=== PATIENT | male | born 1960 | race American Indian/Alaskan Native ===

== ENCOUNTER 2017-04-17 20:47 | Emergency (ER) | payer MEDICARE, MEDICAID ==
[2017-04-17 20:57] VITALS: BMI 39.8
[2017-04-17 21:03] VITALS: RESP 16; TEMP 97.9; O2SAT 100
--- NOTE | 2017-04-17 21:20 | ED PDOC ---
Arrival/HPI - General Chief Complaint: ENT Problem Time Seen by Provider: 04/17/17 21:07 Historian: Patient - History of Present Illness Narrative History of Present Illness (Text): 04/17/17 21:13 A 56 year old male, whose past medical history includes diabetes, hypertension and CHF on Lasix, presents to the emergency department complaining of right sided neck pain for 1 week. Patient describes the pain as a sharp sensation and notes intermittent pain down back and right arm. Patient states the pain is exacerbated with movement. Patient denies any fever, chills, nausea, vomiting, diarrhea, abdominal pain, chest pain, shortness of breath or any other complaints. Patient currently moved from [place] and has not found a PMD in [place]. Time/Duration: 1 week Symptom Course: Unchanged Quality: Other Context: Other Past Medical History - Provider Review Nursing Documentation Reviewed: Yes - Infectious Disease Hx of Infectious Diseases: None - Cardiac Hx Congestive Heart Failure: Yes Hx Hypertension: Yes - Endocrine/Metabolic Hx Diabetes Mellitus Type 2: Yes - Psychiatric Hx Substance Use: No - Surgical History Other/Comment: eye brow - Anesthesia Hx Anesthesia: No Family/Social History - Physician Review Nursing Documentation Reviewed: Yes Family/Social History: No Known Family HX Smoking Status: Unknown If Ever Smoked Hx Alcohol Use: Yes Hx Substance Use: No Allergies/Home Meds Allergies/Adverse Reactions: Allergies dye Allergy (Uncoded 04/17/17 20:56) RASH Home Medications: Home Meds Medication Instructions Recorded Confirmed Aspirin [Aspirin Chewable] 81 mg PO DAILY 04/17/17 04/17/17 Atorvastatin Calcium [Lipitor] 80 mg PO DAILY 04/17/17 04/17/17 Carvedilol [Coreg] 25 mg PO DAILY 04/17/17 04/17/17 Digoxin [Lanoxin] 0.25 mg PO DAILY 04/17/17 04/17/17 Furosemide [Lasix] 20 mg PO DAILY 04/17/17 04/17/17 Metformin ER [Glucophage XR] 1,000 mg PO DAILY 04/17/17 04/17/17 Potassium Chloride [K-Tab ER] 8 meq PO DAILY 04/17/17 04/17/17 Ramipril [Altace] 5 mg PO DAILY 04/17/17 04/17/17 amLODIPine [Norvasc] 10 mg PO DAILY 05/22/17 05/22/17 Review of Systems - Physician Review All systems were reviewed & negative as marked: Yes - Review of Systems Constitutional: absent: Fevers, Night Sweats Respiratory: absent: SOB Cardiovascular: absent: Chest Pain Gastrointestinal: absent: Abdominal Pain, Diarrhea, Nausea, Vomiting Musculoskeletal: Neck Pain (Right sided neck pain intermittently radiating to back/rigth arm) Physical Exam Vital Signs Reviewed: Yes Vital Signs Temp Pulse Resp BP Pulse Ox 04/17/17 22:09 71 154/85 H 04/17/17 21:01 97.9 F 84 16 195/99 H 100 Temperature: Afebrile Blood Pressure: Hypertensive Pulse: Regular Respiratory Rate: Normal Appearance: Positive for: Well-Appearing, Non-Toxic, Comfortable Pain Distress: None Mental Status: Positive for: Alert and Oriented X 3 - Systems Exam Head: Present: Atraumatic, Normocephalic Pupils: Present: PERRL Extroacular Muscles: Present: EOMI Conjunctiva: Present: Normal Mouth: Present: Moist Mucous Membranes Neck: Present: Normal Range of Motion, Paraspinal Tenderness, Other (Right neck lower tenderness to palpation, muscle spasm and hypertonicity appreciated). No : Meningeal Signs, MIDLINE TENDERNESS, JVD, Lymphadenopathy, Bruit Respiratory/Chest: Present: Clear to Auscultation, Good Air Exchange. No: Respiratory Distress, Accessory Muscle Use Cardiovascular: Present: Regular Rate and Rhythm, Normal S1, S2. No: Tachycardic Abdomen: No: Tenderness Back: Present: Other (Right upper back tenderness to palpation, muscle spasm appreciated) Upper Extremity: Present: Normal Inspection, Normal ROM, NORMAL PULSES, Neurovascularly Intact. No: Cyanosis, Edema, Tenderness, Swelling, Erythema, Temperature Abnormalties, Deformity Lower Extremity: Present: Normal Inspection Neurological: Present: GCS=15, CN II-XII Intact, Speech Normal, Motor Func Grossly Intact, Normal Sensory Function, Normal Cerebellar Funct, Gait Normal, Normal 2Pt Descrimination Skin: Present: Warm, Dry, Normal Color. No: Rashes Psychiatric: Present: Alert, Oriented x 3, Normal Insight, Normal Concentration Medical Decision Making ED Course and Treatment: 04/17/17 21:13 Impression: A 56 year old male with right sided neck pain. Differential Diagnosis included but are not limited to: Neck pain secondary to Musculoskeletal Plan: -- Flexeril and Motrin -- Reassess and disposition Progress Notes: 04/17/17 21:20 I have discussed the plan with the patient, who expresses understanding. Patient in agreement with plan to be discharged home. Patient is stable for discharge. Patient was instructed to follow up with physician or return if symptoms worsen or new concerning symptoms arise. - Medication Orders Current Medication Orders: Discontinued Medications Cyclobenzaprine HCl (Flexeril) 10 mg PO STAT STA Stop: 04/17/17 21:15 Last Admin: 04/17/17 21:51 Dose: 10 mg Ibuprofen (Motrin Tab) 800 mg PO STAT STA Stop: 04/17/17 21:15 Last Admin: 04/17/17 21:51 Dose: 800 mg - Scribe Statement The provider has reviewed the documentation as recorded by the Reynaldo Castellon Provider Scribe Attestation: All medical record entries made by the Scribe were at my direction and personally dictated by me. I have reviewed the chart and agree that the record accurately reflects my personal performance of the history, physical exam, medical decision making, and the department course for this patient. I have also personally directed, reviewed, and agree with the discharge instructions and disposition. Disposition/Present on Arrival - Present on Arrival Any Indicators Present on Arrival: No History of DVT/PE: No History of Uncontrolled Diabetes: No Urinary Catheter: No History of Decub. Ulcer: No History Surgical Site Infection Following: None - Disposition Have Diagnosis and Disposition been Completed?: Yes Diagnosis: Neck muscle spasm Disposition: HOME/ ROUTINE Disposition Time: 21:20 Patient Plan: Discharge Condition: IMPROVED Discharge Instructions (ExitCare): Muscle Strain (ED) Additional Instructions: Mr Andrea, thank you for letting us take care of you today. Your provider was Dr. Loyd. You were treated for Neck Muscle Spasm. The emergency medical care you received today was directed at your acute symptoms. If you were prescribed any medication, please fill it and take as directed. It may take several days for your symptoms to resolve. Return to the Emergency Department if your symptoms worsen, do not improve, or if you have any other problems. Please contact your doctor or call one of the physicians/clinics you have been referred to that are listed on the Patient Visit Information form that is included in your discharge packet. Bring any paperwork you were given at discharge with you along with any medications you are taking to your follow up visit. Our treatment cannot replace ongoing medical care by a primary care provider (PCP) outside of the emergency department. Thank you for allowing the [facility] team to be part of your care today. If you had an X-Ray or CT scan: A Radiologist will review the ED reading if any change in treatment is needed we will contact you. If you had a blood, urine, or wound culture: It will take several days for the results, if any change in treatment is needed we will contact you. If you had an STI test: It will take 48 hours for the results. Please call after 1 week if you have not heard back. Prescriptions: Cyclobenzaprine [Cyclobenzaprine HCl] 10 mg PO Q8 PRN #20 tab PRN Reason: Muscle Spasm Naproxen 500 mg PO BID PRN #30 tab PRN Reason: Pain, Moderate (4-7) Referrals: [facility], [Non-Staff] - Follow up with primary Forms: [employer] (Greenlandic), WORK NOTE
[2017-04-17 22:09] VITALS: BP 154/85; PULSE 71
== END 2017-04-17 22:13 | disposition home or self-care (01) ==
LOC: ED 20:47
DX: M62.838 Other muscle spasm (principal); I10 Essential (primary) hypertension

== ENCOUNTER 2017-05-12 18:58 | Emergency (ER) | payer MEDICARE, MEDICAID ==
[2017-05-12 18:58] VITALS: BMI 39.8
[2017-05-12 19:19] VITALS: RESP 18; TEMP 98.6
[2017-05-12] MEDS ORDERED: Lidocaine 5% Patch TD STA (19:21)
[2017-05-12] MEDS ORDERED: Oxycodone/Acetaminophen 5/325 mg Tab PO STA (19:21)
--- NOTE | 2017-05-12 19:29 | ED PDOC ---
Arrival/HPI - General Chief Complaint: Back Pain Time Seen by Provider: 05/12/17 19:10 Historian: Patient - History of Present Illness Narrative History of Present Illness (Text): 05/12/17 19:22 56 y/o male, pmh including htn/hyperlipidemia/dm/chf on lasix, nkda, c/o rt. sided neck pain on and off x 2 weeks with no fall or trauma. Aching pain, tightness in sensation, aggravated by movement of the neck and movement of the rt. shoulder, no night sweat, no chest pain or shortness of breath, no dizziness , no palpitation, no rash, no numbness or tingling, no dizziness, no other medical or psychological complaints. Past Medical History - Provider Review Nursing Documentation Reviewed: Yes - Infectious Disease Hx of Infectious Diseases: None - Cardiac Hx Congestive Heart Failure: Yes Hx Hypertension: Yes - Endocrine/Metabolic Hx Diabetes Mellitus Type 2: Yes - Psychiatric Hx Substance Use: No - Surgical History Other/Comment: eye brow - Anesthesia Hx Anesthesia: No Family/Social History - Physician Review Nursing Documentation Reviewed: Yes Family/Social History: Unknown Family HX Smoking Status: Unknown If Ever Smoked Hx Alcohol Use: Yes Hx Substance Use: No Allergies/Home Meds Allergies/Adverse Reactions: Allergies dye Allergy (Uncoded 04/17/17 20:56) RASH Home Medications: Home Meds Medication Instructions Recorded Confirmed Aspirin [Aspirin Chewable] 81 mg PO DAILY 04/17/17 05/12/17 Atorvastatin Calcium [Lipitor] 80 mg PO DAILY 04/17/17 05/12/17 Carvedilol [Coreg] 25 mg PO DAILY 04/17/17 05/12/17 Digoxin [Lanoxin] 0.25 mg PO DAILY 04/17/17 05/12/17 Furosemide [Lasix] 20 mg PO DAILY 04/17/17 05/12/17 Metformin ER [Glucophage XR] 1,000 mg PO DAILY 04/17/17 05/12/17 Potassium Chloride [K-Tab ER] 8 meq PO DAILY 04/17/17 05/12/17 Ramipril [Altace] 5 mg PO DAILY 04/17/17 05/12/17 amLODIPine [Norvasc] 10 mg PO DAILY 04/17/17 05/12/17 Insulin Glargine, Recombina 25 units SQ HS 05/12/17 05/12/17 [Lantus] Review of Systems - Review of Systems Constitutional: absent: Fatigue, Fevers Eyes: absent: Vision Changes ENT: absent: Hearing Changes Respiratory: absent: SOB, Cough Cardiovascular: absent: Chest Pain Gastrointestinal: absent: Abdominal Pain Musculoskeletal: Neck Pain, Myalgias. absent: Arthralgias, Back Pain, Joint Swelling Skin: absent: Rash, Pruritis, Skin Lesions Neurological: absent: Headache, Dizziness, Focal Weakness Psychiatric: absent: Anxiety, Depression, Suicidal Ideation Physical Exam Vital Signs Reviewed: Yes Vital Signs Temp Pulse Resp BP Pulse Ox 05/12/17 18:58 98.6 F 87 18 181/109 H 96 Temperature: Afebrile Blood Pressure: Hypertensive Pulse: Regular Respiratory Rate: Normal Appearance: Positive for: Well-Appearing, Non-Toxic Pain Distress: Severe Mental Status: Positive for: Alert and Oriented X 3 - Systems Exam Head: Present: Atraumatic, Normocephalic Pupils: Present: PERRL Extroacular Muscles: Present: EOMI Conjunctiva: Present: Normal Mouth: Present: Moist Mucous Membranes Neck: Present: Normal Range of Motion, Paraspinal Tenderness, Trachea Midline, Other (Cervical: +ttp on the rt. trapezius muscle region with the spasm noted, pain is 100% reproducible by rt. lateral movement of the neck, FROM without limitation, sensation intact, motor 5/5). No: Meningeal Signs, MIDLINE TENDERNESS, Lymphadenopathy Respiratory/Chest: Present: Clear to Auscultation, Good Air Exchange. No: Respiratory Distress, Accessory Muscle Use Cardiovascular: Present: Regular Rate and Rhythm, Normal S1, S2. No: Murmurs Abdomen: Present: Normal Bowel Sounds. No: Tenderness, Distention, Peritoneal Signs Back: Present: Normal Inspection Upper Extremity: Present: Normal Inspection. No: Cyanosis, Edema Lower Extremity: Present: Normal Inspection. No: Edema Neurological: Present: GCS=15, Speech Normal Skin: Present: Warm, Dry, Normal Color. No: Rashes Psychiatric: Present: Alert, Oriented x 3, Normal Insight, Normal Concentration Medical Decision Making ED Course and Treatment: 05/12/17 19:24 -toradol/percocet/valium/lidoderm patch. -I reviewed the [facility] report, there is no matching name/date of for the patient, will prescribe controlled substances. 05/12/17 20:26 -Pt. feels better, forgot to take his BP medication and DM medication, he will go home to take it as per patient. -Pt. has no chest pain or shortness of breath, no numbness or tingling, no palpitation, no other medical or psychological complaints. -Lung are clear to auscultate bilaterally with trachea midline, no deviation. No heart murmur, no pedal edema. -Discharge home with mobic, robaxin, percocet, lidoderm patch, heat compression , follow up with your ow pmd and pain management within 2 days, return to the ER for any new or worsening signs or symptoms. - Medication Orders Current Medication Orders: Discontinued Medications Diazepam (Valium) 5 mg PO ONCE ONE PRN Reason: Protocol Stop: 05/12/17 19:22 Last Admin: 05/12/17 19:44 Dose: 5 mg Ketorolac Tromethamine (Toradol) 60 mg IM STAT STA Stop: 05/12/17 19:22 Last Admin: 05/12/17 19:44 Dose: 60 mg Lidocaine (Lidoderm) 1 ea TD STAT STA Stop: 05/12/17 19:22 Last Admin: 05/12/17 19:43 Dose: 1 ea Oxycodone/Acetaminophen (Percocet 5/325 Mg Tab) 1 tab PO STAT STA Stop: 05/12/17 19:22 Last Admin: 05/12/17 19:43 Dose: 1 tab - PA / CAGE LOADER / Resident Statement / has reviewed & agrees with the documentation as recorded. Disposition/Present on Arrival - Present on Arrival Any Indicators Present on Arrival: No History of DVT/PE: No History of Uncontrolled Diabetes: No Urinary Catheter: No History of Decub. Ulcer: No History Surgical Site Infection Following: None - Disposition Have Diagnosis and Disposition been Completed?: Yes Diagnosis: Trapezius muscle spasm Disposition: HOME/ ROUTINE Disposition Time: 19:30 Patient Plan: Discharge Patient Problems: Current Active Problems Problem Status Onset Trapezius muscle spasm Acute Condition: IMPROVED Additional Instructions: Discharge home with mobic, robaxin, percocet, lidoderm patch, heat compression, follow up with your ow pmd and pain management within 2 days, return to the ER for any new or worsening signs or symptoms. Prescriptions: Lidocaine 5% [Lidoderm] 1 patch TP DAILY PRN #14 patch PRN Reason: Other Meloxicam [Mobic] 15 mg PO DAILY PRN #14 tablet PRN Reason: Other Methocarbamol [Robaxin-750] 2 tab PO QID PRN #80 tablet PRN Reason: Other oxyCODONE/Acetaminophen [Percocet 5/325 mg Tab] 1 tab PO QID PRN #12 tab PRN Reason: Other Referrals: [facility] [place] - Follow up with primary Mauro Wade MD [Staff Provider] - Follow up with primary Forms: WORK NOTE
[2017-05-12 20:36] VITALS: BP 168/67; PULSE 83; O2SAT 98
== END 2017-05-12 20:42 | disposition home or self-care (01) ==
LOC: ED 18:58
DX: M62.838 Other muscle spasm (principal); I10 Essential (primary) hypertension
CPT/HCPCS: 96372; 99282; J1885

== ENCOUNTER 2017-07-17 11:10 | Emergency (ER) | payer MEDICARE, MEDICAID ==
[2017-07-17 11:13] VITALS: BMI 39.1
--- NOTE | 2017-07-17 11:17 | ED PDOC ---
Arrival/HPI - General Historian: Patient - General Chief Complaint: Dental Pain Time Seen by Provider: 07/17/17 11:16 - History of Present Illness Narrative History of Present Illness (Text): 07/17/17 11:17 57 y/o male, pmh including htn/hyperlipidemia/dm, nkda, c/o rt. lower molar pain x 3 days with no fall or trauma. Pt. stated that he has rt. lower molar pain, aching pain, aggravated by chewing and eating, radiating to the rt. ear. Pt. stated that one of his family members which he live together with has rabies which currently receiving the medication, stated that he has itching on the rt. hand digits as well started today, request medication to be treatment. Pt. has no dizziness, no chest pain or shortness of breath, no palpitation, no night sweat, no other medical or psychological complaints. (Yfn Lyn) Past Medical History - Provider Review Nursing Documentation Reviewed: Yes - Infectious Disease Hx of Infectious Diseases: None - Cardiac Hx Congestive Heart Failure: Yes Hx Hypertension: Yes - Endocrine/Metabolic Hx Diabetes Mellitus Type 2: Yes - Psychiatric Hx Substance Use: No - Surgical History Other/Comment: eye brow - Anesthesia Hx Anesthesia: No Family/Social History - Physician Review Nursing Documentation Reviewed: Yes Family/Social History: Unknown Family HX Smoking Status: Never Smoked Hx Alcohol Use: Yes Frequency of alcohol use: Socially Hx Substance Use: No Allergies/Home Meds Allergies/Adverse Reactions: Allergies dye Allergy (Uncoded 04/17/17 20:56) RASH Home Medications: Home Meds Medication Instructions Recorded Confirmed Aspirin [Aspirin Chewable] 81 mg PO DAILY 04/17/17 07/17/17 Atorvastatin Calcium [Lipitor] 80 mg PO DAILY 04/17/17 07/17/17 Carvedilol [Coreg] 25 mg PO DAILY 04/17/17 07/17/17 Digoxin [Lanoxin] 0.25 mg PO DAILY 04/17/17 07/17/17 Furosemide [Lasix] 20 mg PO DAILY 04/17/17 07/17/17 Metformin ER [Glucophage XR] 1,000 mg PO DAILY 04/17/17 07/17/17 Potassium Chloride [K-Tab ER] 8 meq PO DAILY 04/17/17 07/17/17 Ramipril [Altace] 5 mg PO DAILY 04/17/17 07/17/17 amLODIPine [Norvasc] 10 mg PO DAILY 04/17/17 07/17/17 Insulin Glargine, Recombina 25 units SQ HS 05/12/17 07/17/17 [Lantus] Review of Systems - Review of Systems Constitutional: absent: Fatigue, Fevers Eyes: absent: Vision Changes ENT: Other (dental pain). absent: Hearing Changes Respiratory: absent: SOB, Cough Cardiovascular: absent: Chest Pain Gastrointestinal: absent: Abdominal Pain, Diarrhea, Nausea, Vomiting Skin: Rash, Pruritis, Skin Lesions. absent: Laceration, Abscess, Ulcer, Cellulitis Neurological: absent: Headache, Dizziness, Focal Weakness Physical Exam Vital Signs Reviewed: Yes Temperature: Afebrile Blood Pressure: Hypertensive Pulse: Regular Respiratory Rate: Normal Appearance: Positive for: Well-Appearing, Non-Toxic, Comfortable Pain Distress: Severe Mental Status: Positive for: Alert and Oriented X 3 - Systems Exam Head: Present: Atraumatic, Normocephalic, Other (no temporal artery tenderness) Pupils: Present: PERRL Extroacular Muscles: Present: EOMI Conjunctiva: Present: Normal Ears: Present: NORMAL TM, Normal Canal. No: Erythema Mouth: Present: Moist Mucous Membranes, Normal Lips, Normal Tounge, Other ( visible rt. lower molar cracked with brown discoloration, no gingivitis or gingival abscess. ). No: Drooling Neck: Present: Normal Range of Motion Respiratory/Chest: Present: Clear to Auscultation, Good Air Exchange. No: Respiratory Distress, Accessory Muscle Use Cardiovascular: Present: Regular Rate and Rhythm, Normal S1, S2. No: Murmurs Abdomen: Present: Normal Bowel Sounds. No: Tenderness, Distention, Peritoneal Signs Back: Present: Normal Inspection Upper Extremity: Present: Normal Inspection. No: Cyanosis, Edema Lower Extremity: Present: Normal Inspection. No: Edema Neurological: Present: GCS=15, Speech Normal, Motor Func Grossly Intact, Gait Normal, Memory Normal Skin: Present: Warm, Dry, Normal Color. No: Rashes (there is no visible rash. ) Psychiatric: Present: Alert, Oriented x 3, Normal Insight, Normal Concentration Medical Decision Making ED Course and Treatment: 07/17/17 11:36 -Toradol/percocet/clindamycin -I will give permethrin prescription for the patient as he is itching with living the same household as the patient infested with scabies. -Discharge home with amoxicillin, naproxen, viscous lidocaine, permethrin cream , follow up with your own pmd and dentist/social service director within 2 days, return to the ER for any new or worsening signs or symptoms. (Yfn Lyn) 07/17/17 11:44 I was available for consultation during PA evaluation. The chart was reviewed by me, and I agree with disposition. The documented history was done by the physician property and casualty insurance agent. The documented physical exam was done by the physician property and casualty insurance agent. The documented procedures were done by the physician property and casualty insurance agent. (Scott Bloom) - Medication Orders Current Medication Orders: Discontinued Medications Clindamycin HCl (Cleocin) 300 mg PO STAT STA PRN Reason: Protocol Stop: 07/17/17 11:32 Ketorolac Tromethamine (Toradol) 60 mg IM STAT STA Stop: 07/17/17 11:32 Lidocaine HCl (Lidocaine 2% Viscous) 15 ml MM STAT STA Stop: 07/17/17 11:32 Oxycodone/Acetaminophen (Percocet 5/325 Mg Tab) 1 tab PO STAT STA Stop: 07/17/17 11:32 - PA / STOCK LETTERER / Resident Statement MD/DO has reviewed & agrees with the documentation as recorded. Disposition/Present on Arrival - Present on Arrival Any Indicators Present on Arrival: No History of DVT/PE: No History of Uncontrolled Diabetes: No Urinary Catheter: No History of Decub. Ulcer: No History Surgical Site Infection Following: None - Disposition Have Diagnosis and Disposition been Completed?: Yes Disposition Time: 11:37 Patient Plan: Discharge - Disposition Diagnosis: Scabies exposure, Dental caries Condition: GOOD Additional Instructions: -Discharge home with amoxicillin, naproxen, viscous lidocaine, permethrin cream , follow up with your own pmd and dentist/social service director within 2 days, return to the ER for any new or worsening signs or symptoms. Prescriptions: Amoxicillin 500 mg PO BID PRN #20 tab PRN Reason: Other Lidocaine 2% Viscous 15 ml MM BID PRN #1 bottle PRN Reason: Other Naproxen 500 mg PO BID PRN #20 tab PRN Reason: Other Permethrin 5% [Permethrin 5% Cream] 1 applic TOP ONCE #60 g Referrals: [facility] [Outside] - Follow up with primary Forms: [employer] ([place]), WORK NOTE
[2017-07-17 11:18] VITALS: RESP 18; TEMP 98.4; O2SAT 98
[2017-07-17] MEDS ORDERED: Oxycodone/Acetaminophen 5/325 mg Tab PO STA (11:31)
[2017-07-17 11:50] VITALS: BP 168/94; PULSE 75
== END 2017-07-17 12:30 | disposition home or self-care (01) ==
LOC: ED 11:10
DX: K02.9 Dental caries, unspecified (principal); Z20.7 Contact with and (suspected) exposure to pediculosis, acariasis and other infestations
CPT/HCPCS: 96372; 99282; J1885

== ENCOUNTER 2017-12-23 17:29 | Emergency (ER) | payer MEDICARE, MEDICAID ==
[2017-12-23 17:32] VITALS: BMI 40.4
--- NOTE | 2017-12-23 19:22 | ED PDOC ---
Arrival/HPI - General Chief Complaint: Lower Extremity Problem/Injury Time Seen by Provider: 12/23/17 19:22 Historian: Patient - History of Present Illness Narrative History of Present Illness (Text): 12/23/17 19:22 This 57 yo male with pmh dm, htn, presents to this ED complaining of left knee pain x 2 weeks, and left abdominal pruritic rash x 7 days. Patient denies trauma, fever, recent travel, sob, cp, dizziness, recent surgery, nausea, vomiting, or cms. Time/Duration: Other (see hpi) Context: Home Past Medical History - Provider Review Nursing Documentation Reviewed: Yes - Infectious Disease Hx of Infectious Diseases: None - Cardiac Hx Congestive Heart Failure: Yes Hx Hypertension: Yes - Endocrine/Metabolic Hx Diabetes Mellitus Type 2: Yes - Psychiatric Hx Substance Use: No - Surgical History Other/Comment: eye brow - Anesthesia Hx Anesthesia: No Family/Social History - Physician Review Nursing Documentation Reviewed: Yes Family/Social History: Other (noncontributory) Smoking Status: Never Smoked Hx Alcohol Use: Yes Hx Substance Use: No Allergies/Home Meds Allergies/Adverse Reactions: Allergies dye Allergy (Uncoded 04/17/17 20:56) RASH Home Medications: Home Meds Medication Instructions Recorded Confirmed Aspirin [Aspirin Chewable] 81 mg PO DAILY 04/17/17 12/23/17 Atorvastatin Calcium [Lipitor] 80 mg PO DAILY 04/17/17 12/23/17 Carvedilol [Coreg] 25 mg PO DAILY 04/17/17 12/23/17 Digoxin [Lanoxin] 0.25 mg PO DAILY 04/17/17 12/23/17 Furosemide [Lasix] 20 mg PO DAILY 04/17/17 12/23/17 Metformin ER [Glucophage XR] 1,000 mg PO DAILY 04/17/17 12/23/17 Potassium Chloride [K-Tab ER] 8 meq PO DAILY 04/17/17 12/23/17 Ramipril [Altace] 5 mg PO DAILY 04/17/17 12/23/17 amLODIPine [Norvasc] 10 mg PO DAILY 04/17/17 12/23/17 Insulin Glargine, Recombina 25 units SQ HS 05/12/17 12/23/17 [Lantus] Review of Systems - Review of Systems Constitutional: Normal. absent: Fatigue, Weight Change, Fevers Eyes: Normal ENT: Normal Respiratory: Normal. absent: SOB, Cough Cardiovascular: Normal. absent: Chest Pain, Palpitations Gastrointestinal: Normal. absent: Abdominal Pain, Nausea, Vomiting Genitourinary Male: Normal. absent: Dysuria, Frequency, Hematuria Musculoskeletal: Arthralgias (left knee pain) Skin: Rash, Pruritis Neurological: Normal. absent: Headache, Dizziness, Focal Weakness, Gait Changes , Speech Changes, Facial Droop, Disequilibrium Endocrine: Normal Hemo/Lymphatic: Normal Psychiatric: Normal Physical Exam Vital Signs Temp Pulse Resp BP Pulse Ox 12/23/17 17:30 98.5 F 76 18 185/111 H 98 Temperature: Afebrile Blood Pressure: Hypertensive Pulse: Regular Respiratory Rate: Normal Appearance: Positive for: Well-Appearing, Non-Toxic, Comfortable Pain Distress: None Mental Status: Positive for: Alert and Oriented X 3 - Systems Exam Head: Present: Atraumatic, Normocephalic Pupils: Present: PERRL Extroacular Muscles: Present: EOMI Conjunctiva: Present: Normal Mouth: Present: Moist Mucous Membranes Neck: Present: Normal Range of Motion Respiratory/Chest: Present: Clear to Auscultation, Good Air Exchange. No: Respiratory Distress, Accessory Muscle Use Cardiovascular: Present: Regular Rate and Rhythm, Normal S1, S2. No: Murmurs Abdomen: Present: Normal Bowel Sounds, Other (see skin). No: Tenderness, Distention, Peritoneal Signs Back: Present: Normal Inspection Upper Extremity: Present: Normal Inspection, Normal ROM. No: Cyanosis, Edema Lower Extremity: Present: Normal Inspection, NORMAL PULSES, Normal ROM, Tenderness (mild tenderness on left knee joint. No septic knee joint. no erythema, warmth, or ecchymosis), Neurovascularly Intact, Capillary Refill < 2 s. No: Edema, CALF TENDERNESS, Swelling, Erythema, Deformity, Temperature Abnormalties Neurological: Present: GCS=15, CN II-XII Intact, Speech Normal Skin: Present: Warm, Dry, Rashes ((+) right lower abdominal panus skin fold rash , which resembles cadidiasis infection), Normal Color Psychiatric: Present: Alert, Oriented x 3, Normal Insight, Normal Concentration Medical Decision Making ED Course and Treatment: 12/23/17 20:27 Re-evaluation. Patient feels better. Discussed results and plan with patient who expresses understanding. All questions answered and there is agreement with the plan to discharge home with instructions. Patient stable for discharge. Return if symptoms persist or worsen Re-evaluation Time: 20:27 Reassessment Condition: Re-examined, Improved - RAD Interpretation Narrative RAD Interpretations (Text): 12/23/17 20:27 Knee x-rays: DJD. No Fx. Radiology Orders: 12/23/17 19:22 KNEE WITH PATELLA LEFT 3 VIEW [RAD] Stat - Medication Orders Current Medication Orders: Discontinued Medications Ketorolac Tromethamine (Toradol) 30 mg IM STAT STA Stop: 12/23/17 19:25 Last Admin: 12/23/17 19:47 Dose: 30 mg MAR Pain Assessment Document 12/23/17 19:47 AB (Rec: 12/23/17 19:48 AB [place] [id number]) Pain Reassessment Is this a pain reassessment? Yes Sleep Is patient sleeping during reassessment? No Presence of Pain Presence of Pain Yes Pain Scale Used Pain Scale Used Numeric Location Left, Right or Bilateral Left Upper or Lower Lower Pain Location Body Site Leg Description Description Constant Intensity of Pain at present 5 Pain Behavior Grasping Site Aggravating Factors ADL's Alleviating Factors/Management Medication Techniques IM Administration Charges Document 12/23/17 19:47 AB (Rec: 12/23/17 19:48 AB [place] [id number]) Injection Site MAR Injection Site Left Deltoid Charges for Administration # of IM Administrations 1 Disposition/Present on Arrival - Present on Arrival Any Indicators Present on Arrival: No History of DVT/PE: No History of Uncontrolled Diabetes: No Urinary Catheter: No History of Decub. Ulcer: No History Surgical Site Infection Following: None - Disposition Have Diagnosis and Disposition been Completed?: Yes Diagnosis: Knee pain, Candidiasis, cutaneous Disposition: HOME/ ROUTINE Disposition Time: 20:30 Patient Plan: Discharge Patient Problems: Current Active Problems Problem Status Onset Candidiasis, cutaneous Acute Knee pain Acute Condition: GOOD Discharge Instructions (ExitCare): Skin Yeast Infection (ED) Additional Instructions: Call private doctor for follow up visit in 1-2 days. Take medication as instructed. return to emergency if symptoms worsen. Do not drive or operate machinery if you are taking Tylenol #3. Apply cream on the rash once daily for at least 2 weeks Prescriptions: Acetaminophen with Codeine [Tylenol with Codeine #3 Tablet] 1 each PO Q6H PRN # 15 tablet PRN Reason: Pain, Severe (8-10) Econazole 1% [Spectazole Cr] 1 appl TP DAILY #1 tube Referrals: PCP,NO [Primary Care Provider] - Follow up with primary Tenzin Aquino DO [Staff Provider] - Follow up with primary Forms: [employer] (Uzbek)
[2017-12-23 20:57] VITALS: PULSE 70; RESP 16; O2SAT 100
[2017-12-23 21:00] VITALS: BP 168/90; TEMP 97.6
--- NOTE | 2017-12-24 10:31 | RAD ---
PROCEDURE: Left Knee Radiographs. HISTORY: Pain. COMPARISON: None. FINDINGS: BONES: There is no acute displaced fracture or bone destruction. There is normal there is mild medial translation of the medial femoral head. JOINTS: There is moderate tricompartmental degenerative osteoarthrosis with reduced joint spaces, marginal osteophytes and tibial spiking, worse in the medial compartment. JOINT EFFUSION: None. OTHER FINDINGS: None. IMPRESSION: No acute fracture or dislocation. Moderate tricompartmental degenerative osteoarthrosis, worse in the medial compartment.
== END 2017-12-23 20:58 | disposition home or self-care (01) ==
LOC: ED 17:29
DX: M25.562 Pain in left knee (principal); B37.9 Candidiasis, unspecified
CPT/HCPCS: 73562; 96372; 99285; J1885

== ENCOUNTER 2018-12-08 07:46 | Emergency (ER) | payer MEDICARE, MEDICAID ==
[2018-12-08 07:47] VITALS: BMI 40.4
[2018-12-08 08:01] VITALS: RESP 18
--- NOTE | 2018-12-08 08:28 | ED PDOC ---
Arrival/HPI - General Chief Complaint: Cough, Cold, Congestion Time Seen by Provider: 12/08/18 08:15 Historian: Patient - History of Present Illness Narrative History of Present Illness (Text): 12/08/18 08:36 58 year old male, with past medical history of bronchitis, CHF, IDDM, hypertension, and hyperlipidemia, presents to emergency department complaining of generalized myalgias, cough, and chills for the past two days and shortness of breath since yesterday. Patient notes high level of physical exertion, and states he experienced shortness of breath when walking on treadmill. Patient reports receiving flu shot 3 months ago and states he has had recent sick contact. Patient reports not having taken medication today. Patient denies any fevers, headache, dizziness, chest pain, abdominal pain, nausea, vomiting, diarrhea, back pain, neck pain, or any other complaints. Time/Duration: Other (2 days) Symptom Onset: Gradual Symptom Course: Unchanged Activities at Onset: Light Context: Home Past Medical History - Provider Review Nursing Documentation Reviewed: Yes - Infectious Disease Hx of Infectious Diseases: None - Cardiac Hx Congestive Heart Failure: Yes Hx Hypertension: Yes - Endocrine/Metabolic Hx Diabetes Mellitus Type 2: Yes - Psychiatric Hx Substance Use: No - Surgical History Other/Comment: eye brow - Anesthesia Hx Anesthesia: No Family/Social History - Physician Review Nursing Documentation Reviewed: Yes Family/Social History: Unknown Family HX Smoking Status: Never Smoked Hx Alcohol Use: Yes Hx Substance Use: No Allergies/Home Meds Allergies/Adverse Reactions: Allergies dye Allergy (Uncoded 12/08/18 08:01) RASH Home Medications: Home Meds Medication Instructions Recorded Confirmed Aspirin [Aspirin Chewable] 81 mg PO DAILY 04/17/17 08/18/18 Atorvastatin Calcium [Lipitor] 80 mg PO DAILY 04/17/17 08/18/18 Carvedilol [Coreg] 25 mg PO DAILY 04/17/17 08/18/18 Digoxin [Lanoxin] 0.25 mg PO DAILY 04/17/17 08/18/18 Furosemide [Lasix] 20 mg PO DAILY 04/17/17 08/18/18 MetFORMIN ER [Glucophage XR] 1,000 mg PO DAILY 04/17/17 08/18/18 Potassium Chloride [K-Tab ER] 8 meq PO DAILY 04/17/17 08/18/18 Ramipril [Altace] 5 mg PO DAILY 04/17/17 08/18/18 amLODIPine [Norvasc] 10 mg PO DAILY 04/17/17 08/18/18 Insulin Glargine, Recombina 25 units SQ HS 05/12/17 08/18/18 [Lantus] Review of Systems - Physician Review All systems were reviewed & negative as marked: Yes - Review of Systems Constitutional: Other (chills). absent: Fevers ENT: absent: Sore Throat Respiratory: SOB, Cough Cardiovascular: absent: Chest Pain Gastrointestinal: absent: Abdominal Pain, Diarrhea, Vomiting Genitourinary Male: absent: Frequency, Hematuria, Urinary Output Changes Musculoskeletal: Myalgias (generalized). absent: Back Pain, Neck Pain Skin: absent: Rash Neurological: absent: Headache, Dizziness Physical Exam Vital Signs Reviewed: Yes Vital Signs Temp Pulse Resp BP Pulse Ox 12/08/18 07:59 98.7 F 73 18 171/82 H 96 Temperature: Afebrile Blood Pressure: Normal Pulse: Regular Respiratory Rate: Normal Appearance: Positive for: Well-Appearing, Non-Toxic, Comfortable Pain Distress: None Mental Status: Positive for: Alert and Oriented X 3 - Systems Exam Head: Present: Atraumatic, Normocephalic Pupils: Present: PERRL Extroacular Muscles: Present: EOMI Conjunctiva: Present: Normal Mouth: Present: Moist Mucous Membranes Neck: Present: Normal Range of Motion Respiratory/Chest: Present: Clear to Auscultation, Good Air Exchange. No: Respiratory Distress, Accessory Muscle Use Cardiovascular: Present: Regular Rate and Rhythm, Normal S1, S2. No: Murmurs Abdomen: No: Tenderness, Distention, Peritoneal Signs Back: Present: Normal Inspection Upper Extremity: Present: Normal Inspection. No: Cyanosis, Edema Lower Extremity: Present: Edema (1+ pitting edema bilaterally ) Neurological: Present: GCS=15, CN II-XII Intact, Speech Normal Skin: Present: Warm, Dry, Normal Color. No: Rashes Psychiatric: Present: Alert, Oriented x 3, Normal Insight, Normal Concentration Medical Decision Making ED Course and Treatment: 12/08/18 08:30 Impression: 58 year old male presents to emergency department complaining of generalized myalgias, coughs, and chills for the past two days and shortness of breath since yesterday. Plan: -- EKG -- Labs -- Chest X-ray -- Reassess and disposition Prior Visits: Notes and results from previous visits were reviewed. Progress Notes: 12/08/18 08:57 EKG: Ordered, reviewed, and independently interpreted the EKG. Rate : 68 BPM Rhythm : NSR Interpretation : No ST-segment elevations or depressions, first 3 AV block, left axis deviation, normal QRS/QT intervals Comparison : Previous EKG on 08/18/2018, no changes 12/08/18 10:18 Results discussed with patient. Patient will receive treatment for bronchitis. 12/08/18 10:20 Patient will switch PCP's from [place] to [facility] [place]. Will receive follow-up appointment with doctor operations officer afloat here. 12/08/18 10:42 Chest X-ray, reviewed by radiologist: IMPRESSION: No active disease. No significant interval change compared to the prior examination(s). - RAD Interpretation Radiology Orders: 12/08/18 08:22 CHEST TWO VIEWS (PA/LAT) [RAD] Stat - Scribe Statement The provider has reviewed the documentation as recorded by the Scribe Mickey Cordova All medical record entries made by the Scribe were at my direction and personally dictated by me. I have reviewed the chart and agree that the record accurately reflects my personal performance of the history, physical exam, medical decision making, and the department course for this patient. I have also personally directed, reviewed, and agree with the discharge instructions and disposition. Disposition/Present on Arrival - Present on Arrival History of DVT/PE: No History of Uncontrolled Diabetes: No Urinary Catheter: No History of Decub. Ulcer: No History Surgical Site Infection Following: None - Disposition Have Diagnosis and Disposition been Completed?: Yes Diagnosis: Bronchitis Disposition: HOME/ ROUTINE Disposition Time: 10:27 Patient Plan: Discharge Patient Problems: Current Active Problems Problem Status Onset Bronchitis Acute Condition: STABLE Discharge Instructions (ExitCare): Acute Bronchitis, Adult (DC) Additional Instructions: TASHI POWELL, thank you for letting us take care of you today. Your provider was Jolene Hamilton MD and you were treated for COLD. The emergency medical care you received today was directed at your acute symptoms. If you were prescribed any medication, please fill it and take as directed. It may take several days for your symptoms to resolve. Return to the Emergency Department if your symptoms worsen, do not improve, or if you have any other problems. Please contact your doctor or call one of the physicians/clinics you have been referred to that are listed on the Patient Visit Information form that is included in your discharge packet. Bring any paperwork you were given at discharge with you along with any medications you are taking to your follow up visit. Our treatment cannot replace ongoing medical care by a primary care provider outside of the emergency department. Thank you for allowing the [facility] team to be part of your care today. If you had an X-Ray or CT scan: A Radiologist will review the ED reading if any change in treatment is needed we will contact you. If you had a blood, urine, or wound culture: It will take several days for the results, if any change in treatment is needed we will contact you. If you had an STI test: It will take 48 hours for the results. Please call after 1 week if you have not heard back. Prescriptions: Doxycycline Monohydrate 100 mg PO BID #14 capsule Referrals: [facility] [Outside] - Follow up with primary [facility] [Outside] - Follow up with primary Connie Nelson MD [Medical Doctor] - Follow up with primary Rakesh Cardoso MD [Staff Provider] - Follow up with primary
[2018-12-08 09:27] LABS: BASO # 0.03 K/mm3 (0.0-2.0); BASO % 0.2 % (0.0-3.0); EOS # 0.4 (0.0-0.7); EOS % 2.8 % (1.5-5.0); GRAN # 10.68 (1.4-6.5); GRAN % 72.2 % (50.0-68.0); HEMOGLOBIN 12.9 g/dL (14.0-18.0); LYMPH # 2.1 (1.2-3.4); LYMPH % 14.4 % (22.0-35.0); MEAN CELL VOLUME 90.4 fl (80.0-105.0); MEAN CORPUSCULAR HEMOGLOBIN 29.5 pg (25.0-35.0); MEAN CORPUSCULAR HGB CONC 32.6 g/dl (31.0-37.0); MEAN PLATELET VOLUME 9.2 fl (7.0-11.0); MONO # 1.5 (0.1-0.6); MONO % 10.4 % (1.0-6.0); RBC 4.38 10^6/uL (3.5-6.1); RED CELL DISTRIBUTION WIDTH 13.8 % (11.5-14.5); WHITE BLOOD COUNT 14.8 10^3/uL (4.5-11.0)
[2018-12-08 09:43] LABS: ALBUMIN 3.8 g/dL (3.0-4.8); ALT/SGPT 23 U/L (7-56); AST/SGOT 22 U/L (17-59); BLOOD UREA NITROGEN 12 mg/dL (7-21); CALCIUM 8.6 mg/dL (8.4-10.5); GFR NON-AFRICAN AMERICAN > 60
[2018-12-08 09:55] LABS: B-TYPE NATRIURETIC PEPTIDE 327 pg/mL (0-450); TROPONIN I 0.04 ng/mL
--- NOTE | 2018-12-08 09:56 | RAD ---
Date of service: 12/08/2018 HISTORY: Shortness of breath. COMPARISON: 08/18/2018 TECHNIQUE: Chest PA and lateral FINDINGS: LUNGS: No active pulmonary disease. PLEURA: No significant pleural effusion identified. No pneumothorax apparent. CARDIOVASCULAR: No aortic atherosclerotic calcification present. Normal cardiac size. No pulmonary vascular congestion. OSSEOUS STRUCTURES: No significant abnormalities. VISUALIZED UPPER ABDOMEN: Normal. OTHER FINDINGS: None. IMPRESSION: No active disease. No significant interval change compared to the prior examination(s).
[2018-12-08 11:03] VITALS: BP 159/73; PULSE 70; TEMP 98; O2SAT 98
--- NOTE | 2018-12-08 20:33 | CARD ---
APPROVED REPORT Date of service: 12/08/2018 EKG Measurement Heart [id number] <Conclusion> Sinus rhythm with 1st degree AV block Left axis deviation Inferior infarct, age undetermined Anterior infarct, age undetermined Abnormal ECG
== END 2018-12-08 11:03 | disposition home or self-care (01) ==
LOC: ED 07:46
DX: J40 Bronchitis, not specified as acute or chronic (principal); E11.9 Type 2 diabetes mellitus without complications; E78.5 Hyperlipidemia, unspecified; Z79.4 Long term (current) use of insulin; I10 Essential (primary) hypertension; I50.9 Heart failure, unspecified

== ENCOUNTER 2019-03-16 08:18 | Emergency (ER) | payer MEDICARE, MEDICAID ==
[2019-03-16 08:18] VITALS: BMI 40.4
[2019-03-16 08:27] VITALS: RESP 18; TEMP 98.1
--- NOTE | 2019-03-16 08:58 | ED PDOC ---
Arrival/HPI - General Chief Complaint: Cough, Cold, Congestion Time Seen by Provider: 03/16/19 08:27 Historian: Patient - History of Present Illness Narrative History of Present Illness (Text): 03/16/19 08:54 58 year old male, whose past medical history includes bronchitis, CHF, IDDM, hypertension, and hyperlipidemia, presents complaining of nasal congestion, cough with yellowish color phlegm, and wheezing for he past 3-4 days. Patient did not take any medication for relief. Patient denies any fever, chills, sore throat, runny nose, ear pain, chest pain, nausea, vomiting, diarrhea, urinary symptoms, back pain, neck pain, headache, dizziness, or any other complaints. PMD: [facility] Time/Duration: Other (4-5 days) Symptom Onset: Gradual Symptom Course: Unchanged Activities at Onset: Light Context: Home Past Medical History - Provider Review Nursing Documentation Reviewed: Yes - Infectious Disease Hx of Infectious Diseases: None - Cardiac Hx Congestive Heart Failure: Yes Hx Hypertension: Yes - Endocrine/Metabolic Hx Diabetes Mellitus Type 2: Yes - Psychiatric Hx Substance Use: No - Surgical History Other/Comment: eye brow - Anesthesia Hx Anesthesia: No Family/Social History - Physician Review Nursing Documentation Reviewed: Yes Family/Social History: No Known Family HX Smoking Status: Never Smoked Hx Alcohol Use: Yes Hx Substance Use: No Allergies/Home Meds Allergies/Adverse Reactions: Allergies dye Allergy (Uncoded 12/08/18 08:01) RASH Home Medications: Home Meds Medication Instructions Recorded Confirmed Aspirin [Aspirin Chewable] 81 mg PO DAILY 04/17/17 08/18/18 Atorvastatin Calcium [Lipitor] 80 mg PO DAILY 04/17/17 08/18/18 Carvedilol [Coreg] 25 mg PO DAILY 04/17/17 08/18/18 Digoxin [Lanoxin] 0.25 mg PO DAILY 04/17/17 08/18/18 Furosemide [Lasix] 20 mg PO DAILY 04/17/17 08/18/18 MetFORMIN ER [Glucophage XR] 1,000 mg PO DAILY 04/17/17 08/18/18 Potassium Chloride [K-Tab ER] 8 meq PO DAILY 04/17/17 08/18/18 Ramipril [Altace] 5 mg PO DAILY 04/17/17 08/18/18 amLODIPine [Norvasc] 10 mg PO DAILY 04/17/17 08/18/18 Insulin Glargine, Recombina 25 units SQ HS 05/12/17 08/18/18 [Lantus] Review of Systems - Physician Review All systems were reviewed & negative as marked: Yes - Review of Systems Constitutional: absent: Fevers, Other (chills) ENT: Sinus Congestion. absent: Sore Throat, Rhinorrhea Respiratory: Cough (with yellow phlegm), Wheezing. absent: SOB Cardiovascular: absent: Chest Pain Gastrointestinal: absent: Diarrhea, Nausea, Vomiting Genitourinary Male: absent: Dysuria, Frequency, Hematuria Musculoskeletal: absent: Back Pain, Neck Pain Neurological: absent: Headache, Dizziness Physical Exam - Physical Exam Narrative Physical Exam (Text): Gen: VS reviewed, alert, well developed, well nourished, nontoxic, mild di stress. ENT: Boggey nasal turbinates. normal pharynx. Eye: EOMI, PERRL. Neck: no JVD, supple, no adenopathy. CV: regular rate, regular rhythm, no rubs, no murmur, no gallops, S1, S2, pulses equal and strong. Pulm: faint expiratory wheeze, but with good air exchange, no rhonchi, breath sounds equal, no rales. Abd: soft, nontender, no guarding, no rebound, no rigidity, normal bowel sounds. Ext: no edema. Skin: good color, no rash, no cyanosis. Psych: responds appropriately to questions, normal affect. Neuro: oriented x 3, CN2-12 intact grossly, motor intact, sensation intact. Vital Signs Reviewed: Yes Vital Signs Temp Pulse Resp BP Pulse Ox 03/16/19 08:18 98.1 F 76 18 153/81 H 97 Temperature: Afebrile Blood Pressure: Hypertensive Pulse: Regular Respiratory Rate: Normal Medical Decision Making ED Course and Treatment: 03/16/19 08:59 Impression: 58 year old male presents complaining of nasal congestion, cough with yellowish phlegm, and wheezing that began 4-5 days ago. Plan: -- Labs -- Chest X-ray -- Reassess and disposition Prior Visits: Notes and results from previous visits were reviewed. Progress Notes: 03/16/19 11:00 patient seen for nonspecific nasal congestion without overt s/s of sinus infection. will rx flonase for nasal congestion. cxr was done to rule out pulm edema. patient requested referral to local pcp. - Lab Interpretations I have reviewed the lab results: Yes - RAD Interpretation Narrative RAD Interpretations (Text): Chest X-ray Dictator : Sean Phelan MD Barrel Raiser : Report Date : 03/16/2019 10:44:37 IMPRESSION: No active disease. Toy Department Manager: Radiologist - Scribe Statement The provider has reviewed the documentation as recorded by the Scribe Abner Light Provider Scribe Attestation: All medical record entries made by the Scribe were at my direction and personally dictated by me. I have reviewed the chart and agree that the record accurately reflects my personal performance of the history, physical exam, medical decision making, and the department course for this patient. I have also personally directed, reviewed, and agree with the discharge instructions and disposition. Disposition/Present on Arrival - Present on Arrival Any Indicators Present on Arrival: No History of DVT/PE: No History of Uncontrolled Diabetes: No Urinary Catheter: No History of Decub. Ulcer: No History Surgical Site Infection Following: None - Disposition Have Diagnosis and Disposition been Completed?: Yes Diagnosis: Nasal congestion Disposition: HOME/ ROUTINE Disposition Time: 11:01 Patient Plan: Discharge Condition: STABLE Discharge Instructions (ExitCare): Cough, Runny Nose, and the Common Cold Additional Instructions: return for any new or worsening symptoms. follow up with a primary care doctor. Prescriptions: Fluticasone Nasal [Flonase] 1 spr NS BID 14 Days #1 spr Referrals: Hanane Colbert MD [Staff Provider] - Follow up with primary Ro Biggs MD [Staff Provider] - Follow up with primary Forms: [employer] (Pu[place]ican)
[2019-03-16 09:56] LABS: BASO # 0.02 K/mm3 (0.0-2.0); BASO % 0.2 % (0.0-3.0); EOS # 0.8 (0.0-0.7); EOS % 8.4 % (1.5-5.0); HEMOGLOBIN 12.6 g/dL (14.0-18.0); LYMPH # 2.5 (1.2-3.4); LYMPH % 25.6 % (22.0-35.0); MEAN CELL VOLUME 89.5 fl (80.0-105.0); MEAN CORPUSCULAR HEMOGLOBIN 28.3 pg (25.0-35.0); MEAN CORPUSCULAR HGB CONC 31.6 g/dl (31.0-37.0); MEAN PLATELET VOLUME 9.2 fl (7.0-11.0); MONO # 0.7 (0.1-0.6); MONO % 6.7 % (1.0-6.0); RBC 4.46 10^6/uL (3.5-6.1); RED CELL DISTRIBUTION WIDTH 13.8 % (11.5-14.5); WHITE BLOOD COUNT 9.9 10^3/uL (4.5-11.0)
[2019-03-16 10:15] LABS: ALBUMIN 3.7 g/dL (3.0-4.8); ALT/SGPT 10 U/L (7-56); AST/SGOT 19 U/L (17-59); BLOOD UREA NITROGEN 13 mg/dL (7-21); CALCIUM 8.3 mg/dL (8.4-10.5); GFR NON-AFRICAN AMERICAN > 60
--- NOTE | 2019-03-16 10:48 | RAD ---
Date of service: 03/16/2019 HISTORY: wheezing, chf COMPARISON: 12/08/2018 TECHNIQUE: Chest PA and lateral views FINDINGS: LUNGS: No active pulmonary disease. PLEURA: No significant pleural effusion identified. No pneumothorax apparent. CARDIOVASCULAR: No aortic atherosclerotic calcification present. Normal cardiac size. No pulmonary vascular congestion. OSSEOUS STRUCTURES: No significant abnormalities. VISUALIZED UPPER ABDOMEN: Normal. OTHER FINDINGS: None. IMPRESSION: No active disease.
[2019-03-16 11:16] VITALS: BP 149/80; PULSE 82; O2SAT 98
== END 2019-03-16 11:16 | disposition home or self-care (01) ==
LOC: ED 08:18
DX: R09.81 Nasal congestion (principal); E78.5 Hyperlipidemia, unspecified; I50.9 Heart failure, unspecified; I10 Essential (primary) hypertension; E11.9 Type 2 diabetes mellitus without complications; Z79.4 Long term (current) use of insulin